=== PATIENT | female | born 1970 | race Caucasian/White ===

== ENCOUNTER 2018-03-26 02:12 | Emergency (ER) | payer OTHER, BC ==
[~2018-03-26] VITALS: Ht 172.7 cm; Wt 89.8 kg
[~2018-03-26 02:12] MED LIST: BUPROPION XL150 MG PO; METHOCARBAMOL500 MG PO; OMEPRAZOLE40 MG PO; SERTRALINE HCL100 MG PO; SULFAMETHOXAZO1 EAC1 PO; ZYRTEC10 M3 PO
== END 2018-03-26 03:48 | disposition home or self-care (01) ==
LOC: ED 02:12
DX: S09.90XA Unspecified injury of head, initial encounter (principal); S01.511A Laceration without foreign body of lip, initial encounter; S09.93XA Unspecified injury of face, initial encounter; Z88.6 Allergy status to analgesic agent; Z79.899 Other long term (current) drug therapy; W18.30XA Fall on same level, unspecified, initial encounter; Y99.0 Civilian activity done for income or pay
CPT/HCPCS: 70450; 99284

== ENCOUNTER 2020-12-21 05:45 | Day surgery (SDC) | payer BC ==
[~2020-12-21] VITALS: Ht 172.7 cm; Wt 90.5 kg
--- NOTE | ~2020-12-21 | OR ---
[address] [address] [place] DATE OF OPERATION: 12/21/2020 SURGEON: Helen Lake DO PREOPERATIVE DIAGNOSES: Mixed incontinence with stress predominant. POSTOPERATIVE DIAGNOSES: Mixed incontinence with stress predominant. PROCEDURES PERFORMED: Tension-free mid urethral sling with Obtryx system. MANUFACTURING SHIFT SUPERVISOR: Juju Sherman MD. ANESTHESIA: General. ESTIMATED BLOOD LOSS: 25 mL. SPECIMEN: None. PACKING: Premarin impregnated Kerlix. FINDINGS: Normal external genitalia with normal clitoris, urethral meatus, Kennedale's and Bartholin's. Some redundant vaginal tissue inferior to the urethra, but no significant anterior compartment prolapse. TOT was placed with careful attention to tension-free positioning. Hemostasis at the end the procedure. Normal urethra, bladder and bilateral ureteral jets noted immediately after placement of the trocars at the end of the procedure. COMPLICATIONS: None. INDICATIONS: PATIENT NAME: NATE PRO OPERATIVE REPORT DATE OF : 70 REPORT #: [id number] PHYSICIAN: HELEN LAKE DO PCP: FOREIGN GUERRERO REPORT IS CONFIDENTIAL AND NOT TO BE RELEASED WITHOUT AUTHORIZATION [address] [address] [place] Ms. Pro is a very pleasant 50-year-old, G5, P3, white female, who presents with history of mixed incontinence with stress predominating. She reports that she has to change her clothes several times per day at work and the incontinence interferes with playing with her grandchildren. She has failed pads, Kegel regimen, Poise Impressa and lifestyle changes. She is status post total vaginal hysterectomy for endometriosis. She was seen by Dr. Sawyer MD Urology at [facility] for mixed incontinence and he recommended proceeding with mid urethral sling placement as stress predominates. Risks, benefits, and alternatives were discussed in detail with the patient. The patient understands and wishes to proceed with the procedure. TECHNIQUE: The patient was taken to the operating room. A time-out was performed to confirm correct patient, correct procedure. General anesthesia was adequately established. The patient was prepped and draped in dorsal lithotomy position with her feet in Yellofins stirrups. ICPs were on and running. The patient received Ancef 2 g preoperatively and heparin was not indicated. A Castillo catheter was inserted. The skin lateral to the inferior pubic ramus was prepared. A 1.5 cm vertical midline incision was made on the anterior vaginal wall at the level of the mid-urethra. Periurethral tissue was dissected bilaterally to the inferior portion of the inferior pubic ramus at a 45-degree angle off the midline creating a vertical pathway. A stab incision was made at the exit site after careful palpation of obturator foramen. The trocar was then selected and the obturator foramen was pierced on the left with the contralateral finger inserted into the previously prepared pathway and the tip of the trocar was palpated. The trocar was then rotated medially around the inferior pubic ramus and the tip was guided through the vaginal incision. The Obtryx mesh was then attached with the loop of the trocar tip and the trocar removed through the incision site. The process was repeated on the right without complication. The mesh sleeve was positioned centering the tab below the urethra. The Castillo catheter was removed and cystoscopy was performed with a 70-degree cystoscope placed in the urethral meatus and advanced under direct visualization into the bladder. Normal urethra, bladder and bilateral ureteral jets was appreciated. A right angle clamp was used to help adjust tensioning. The sleeve was removed from the mesh and final tensioning was performed with careful attention to ensure tension-free placement. The skin was gently pressed downward and the distal ends of the mesh were cut. The skin was lifted with pickups to lift the edge of the mesh fall below the level of the skin. Cystoscopy was then again performed that demonstrates normal urethra, bladder and bilateral ureteral jets. Vaginal epithelium was then reapproximated using 3-0 Vicryl in a running locked manner. The vaginal tissue was inspected and no perforations were noted. Castillo catheter was reinserted. The skin incision sites were repaired with Dermabond and found to be hemostatic. The vagina was then packed with Premarin impregnated Kerlix. The patient was then taken to PACU in good and stable condition. PATIENT NAME: NATE PRO OPERATIVE REPORT DATE OF : 70 REPORT #: [id number] PHYSICIAN: HELEN LAKE DO PCP: FOREIGN GUERRERO REPORT IS CONFIDENTIAL AND NOT TO BE RELEASED WITHOUT AUTHORIZATION [facility] [address] [place], [place] [address] Draft Sponge, needle and instrument count was correct x2 at the end the procedure. Dr. Sherman was present and participated in all portions of procedure. DO HEATHER Harden/HARRY /[id number] Copies: ~ PATIENT NAME: NATE PRO OPERATIVE REPORT DATE OF : 70 REPORT #: [id number] PHYSICIAN: HELEN LAKE DO PCP: FOREIGN GUERRERO REPORT IS CONFIDENTIAL AND NOT TO BE RELEASED WITHOUT AUTHORIZATION
--- NOTE | 2020-12-21 10:00 | NUR ---
PT ALERT, ORIENTED AND SEEMS TO BE ENJOYING THE EMERGENCY THAT IS PRESENTLY OCCUPYING THE DRS. PT SEEMS INFORMED, EXPRESSED DESIRE TO RETURN TO MORE HER NORMAL ACTIVITY SHE HAS BEEN MISSING OUT ON LATELY. ALL QUESTIONS ASKED WERE ANSWERED. PT REQUESTED PRAYER, WILL FOLLOW NEEDED
--- NOTE | 2020-12-21 10:59 | NUR ---
12/21/20 Sascha9 Edilia Sumner 1048- PT ARRIVES TO PACU NONAROUSABLE TO NOXIOUS STIMULI WITH AN OPA IN PLACE. RESP EVEN AND UNLABORED. OXYGEN SAT HIGH 90'S TO 100% ON 8L VIA MASK.
--- NOTE | 2020-12-21 11:26 | NUR ---
ICED WATER AND JELLO GIVEN. CALL LIGHT WITHIN REACH.
--- NOTE | 2020-12-21 11:31 | NUR ---
PEARCE BALLOON DEFLATED FOR 10 ML FLUID. PEARCE DC WNL. PATIENT TOLERATES WELL. 300 ML CLEAR, LIGHT YELLOW URINE NOTED TO PEARCE OVERNIGHT BAG. PATIENT IS SITTING UP IN BED. HER CELL PHONE IS GIVEN. SHE IS EATING AND DRINKING AND TOLERATING THAT WELL.
[2020-12-21] MEDS ORDERED: OXYCODONE HCL5 MG PO (11:50)
[2020-12-21] MEDS ORDERED: CEPHALEXIN500 M1 PO (11:51)
--- NOTE | 2020-12-21 12:33 | NUR ---
MORE ICED WATER GIVEN. SOUP ORDERED FROM DIETARY.
--- NOTE | 2020-12-21 13:30 | NUR ---
SOUP AND SANDWICH EATING. PATIENT TOLERATES THAT WELL AND REPORTS THE URGE TO VOID.
--- NOTE | 2020-12-21 13:45 | NUR ---
VERBAL ORDER RECEIVED FROM DR CROSS TO REMOVE VAGINAL PACKING. PACKING IS REMOVED WITH A SCANT AMOUNT OF BLOODY DRAINAGE NOTED. PATIENT TOLERATES THIS REMOVAL WELL. PATIENT IS UP TO THE BATHROOM WITH MY STANDBY. PATIENT VOIDS 700 ML BLOODY URINE. NEW SANDY PAD AND STRETCH KNIT BRIEFS ARE PLACED. PATIENT IS BLADDER SCANNED AND FOUND TO 55 ML OF RESIDUAL. THIS IS RELAYED TO DR CROSS. CALL LIGHT IS WITHIN REACH. SPOUSE IS AT HER BEDSIDE. PATIENT DENIES ADDITIONAL NEEDS AT THIS TIME.
--- NOTE | 2020-12-21 15:02 | NUR ---
LE 1420: MESSAGE RECEIVED FROM DR CROSS SAYING VOIDING TRIAL WAS SUCCESSFUL AND PATIENT MAY BE DC HOME. DISCHARGE INSTRUCTIONS ARE GIVEN AND PATIENT AND HER BOTH VERBALIZE UNDERSTANDING. PATIENT IS GETTING DRESSED IN THE PRESENCE OF HER SPOUSE. SHE TRANSFERS TO THE WHEELCHAIR AND THEN TO PERSONAL VEHICLE AND SHE TOLERATES THAT WELL.
== END 2020-12-21 14:25 | disposition home or self-care (01) ==
LOC: DS 05:45 → OPS 05:45 → DS 06:45 → OPS 06:45
PROVIDERS: ATTEND Obstetrics & Gynecology
PROC: 0TSD0ZZ Reposition Urethra, Open Approach (ICD-10-PCS; principal; 2020-12-21 06:45)
DX: N39.46 Mixed incontinence (principal); Z88.6 Allergy status to analgesic agent
CPT/HCPCS: 00860; C1771; J0690; J1100; J1885; J2001; J2405; J2704; J3010; J7121

== ENCOUNTER 2023-08-15 07:09 | Day surgery (SDC) | payer BC ==
[~2023-08-15] VITALS: Ht 172.7 cm; Wt 102.7 kg
[~2023-08-15 07:09] MED LIST changes: +CEPHALEXIN500 M1 PO; +FAMCICLOVIR500 MG PO; +OXYCODONE HCL5 MG PO
[2023-08-15 07:24] VITALS: BP 140/86
--- NOTE | 2023-08-15 09:41 | NUR ---
08/15/23 0941 Sheets,Mary 0932 PT ARRIVED TO PACU ON 2L NC, PT AWAKE OFF AND ON AND DENIES CONCERNS. PT HAS HICCUPS AND IS ENCOUARGED TO PASS GAS OFF AND ON. PT SITTING IN SEMI FOWLERS AND RESP EVEN AND UNLABORED. 0936 O2 TURNED OFF AND PT EASILY FALLS ASLEEP WITH SMALL AMOUNT OF SNORING NOTED.
[2023-08-15 10:13] VITALS: BP 131/86
--- NOTE | 2023-08-15 11:43 | OR ---
[facility] [address] [place], [place] [address] Signed DATE OF OPERATION: 08/15/2023 SURGEON: Cassie Salazar MD PREOPERATIVE DIAGNOSES: 1. Gastroesophageal reflux with episodic dysphagia. 2. Colon screening. POSTOPERATIVE DIAGNOSES: 1. Hiatal hernia with low-grade Schatzki's ring. 2. Sigmoid diverticulosis. 3. Multiple polyps of sigmoid and rectosigmoid (polyps x5). PROCEDURES: 1. Esophagogastroduodenoscopy with biopsy. 2. Total colonoscopy to cecum with cold morcellation polypectomy x2 and mucosal lift snare polypectomy with Endomark tattoo x3. ANESTHESIA: Intravenous sedation; fentanyl 200 mcg and Versed 12 mg total. INDICATION: This 52-year-old white woman is a patient of KRISTI Garcia. The patient has had gastroesophageal reflux and dysphagia. She has previously been endoscoped by Dr. Pagan and found to have a Schatzki's ring in 2016. She does not have severe dysphagia currently. She does take PPI medication on a daily basis. Additionally, she is appropriate for colon screening. She has no colonic symptoms currently and no colon cancer family history. She understands the risk of both procedures including, but not limited to bleeding, infection, and perforation and wished to proceed. FINDINGS: Upper endoscopy did show hiatal hernia and a low-grade Schatzki's ring of the distal esophagus. There is no Ramos's epithelium. There were a few gastric polyps probably related to PPI use. On colonoscopy, sigmoid diverticulosis was noted. Additionally, there were five polyps, some of them larger than others, three of which were excised with hot snare polypectomy technique with mucosal lift and two others with cold morcellation technique. Electronically Signed By: CASSIE SALAZAR MD 08/15/23 1143 PATIENT NAME: NATE PRO OPERATIVE REPORT DATE OF : 70 REPORT #: [id number] PHYSICIAN: CASSIE SALAZAR MD PCP: FOREIGN GUERRERO REPORT IS CONFIDENTIAL AND NOT TO BE RELEASED WITHOUT AUTHORIZATION [facility] [address] [place], [place] [address] Signed DESCRIPTION OF PROCEDURE: The patient was brought to the endoscopy suite and placed in the lateral decubitus position, given intravenous sedation to the point of slurred speech and nystagmus. Full cardiopulmonary monitoring was maintained. Lidocaine hypopharyngeal anesthesia was administered. A bite block was placed and an Olympus video upper endoscope was passed in the hypopharynx. The vocal cords appeared normal. The scope was advanced into the esophagus. In the distal portion, there was a low-grade Schatzki's ring without signs of Ramos's epithelium or neoplasm. The scope was easily passed into the stomach. Stomach was insufflated with air. There were few polyps at the midportion of the stomach. The pylorus was normal and scope was passed through into the duodenum. Biopsies were taken of the duodenum and scope was withdrawn and biopsies then taken of the antrum for both DEMETRICE and pathologic testing. A gastric polyp was excised as well. Retroflexed view confirmed a hiatal hernia, relatively small in size. The scope was withdrawn to the distal esophagus where Schatzki's ring was identified and biopsies obtained there. There was no sign of Ramos's epithelium or actual neoplasm proper. The scope was withdrawn and biopsy was then taken of the mid esophagus. The scope was then withdrawn. Additional sedation was given and digital rectal examination was performed, which was normal. Olympus video colonoscope was passed in the rectum and manipulated throughout the colon. Diverticulosis was noted in the sigmoid and left colon. Scope was locally advanced to the cecum. The ileocecal valve and appendiceal orifice were normal. The scope was withdrawn from that point and examination throughout showed no sign of abnormality other than diverticula of the left colon and sigmoid at which time at 40 to 45 cm were three separate polyps, two of them larger than normal greater than 1 cm. Mucosal lift technique for excision was deemed advisable. A sclerotherapy needle with an Endomark tattoo dye was used to provide the mucosal lift and three polyps were excised with hot snare technique. These were gathered in a Luis net and withdrawn. The scope was reintroduced and the sites of polypectomy were hemostatic. The scope was further withdrawn and another polyp of similar type was noted at 35 cm. It was excised with hot snare technique and a 5th polyp noted at the rectosigmoid at about 20 cm, excised with morcellation technique. Retroflexed view of the rectum was otherwise normal. Scope was removed and the patient was taken to the recovery room in good condition. CONCLUDING DIAGNOSES: 1. Polyps x5 and diverticulosis. 2. Hiatal hernia with Schatzki's ring. Electronically Signed By: CASSIE SALAZAR MD 08/15/23 1143 PATIENT NAME: NATE PRO OPERATIVE REPORT DATE OF : 70 REPORT #: [id number] PHYSICIAN: CASSIE SALAZAR MD PCP: FOREIGN UGERRERO REPORT IS CONFIDENTIAL AND NOT TO BE RELEASED WITHOUT AUTHORIZATION [address] [address] Signed PLAN: Recommend continued use of her PPI medication for now. Weight loss would be advisable. If she has sufficient weight loss, consideration would be made for anti-reflux operation. As regard to colon, would recommend repeat colonoscopy in one year. MD SANGITA Hathaway/HARRY /[id number] cc: KRISTI Garcia Copies: FOREIGN GUERRERO ~ Electronically Signed By: CASSIE SALAZAR MD 08/15/23 1143 PATIENT NAME: NATE PRO OPERATIVE REPORT DATE OF : 70 REPORT #: [id number] PHYSICIAN: CASSIE SALAZAR MD PCP: FOREIGN GUERRERO REPORT IS CONFIDENTIAL AND NOT TO BE RELEASED WITHOUT AUTHORIZATION
--- NOTE | 2023-08-20 17:17 | PATH ---
[facility] [address] [place], [place] [address] Signed SPECIMEN(S): A DUODENAL BIOPSY SPECIMEN(S): B ANTRUM/PYLORUS BIOPSY SPECIMEN(S): C STOMACH POLYP SPECIMEN(S): D LOWER ESOPHAGEAL BIOPSY SPECIMEN(S): E UPPER ESOPHAGEAL BIOPSY SPECIMEN(S): F SIGMOID COLON POLYPS AT 40 CM SPECIMEN(S): G COLON POLYP AT 35 CM SPECIMEN(S): H COLON POLYP AT 20 CM SPECIMEN SOURCE: A. DUODENAL BIOPSY B. ANTRUM/PYLORUS BIOPSY C. STOMACH POLYP D. LOWER ESOPHAGEAL BIOPSY E. UPPER ESOPHAGEAL BIOPSY F. SIGMOID COLON POLYPS AT 40 CM G. COLON POLYP AT 35 CM H. COLON POLYP AT 20 CM CLINICAL HISTORY: Dysphagia, GERD. Schatzki ring, hiatal hernia, gastric polyp, diverticulosis, polyps. FINAL PATHOLOGIC DIAGNOSIS: A. Duodenal biopsy: - Duodenal mucosa with diffuse moderate villous effacement and increased epithelial lymphocytes. (see comment) B. Antrum/pylorus biopsy: - Benign gastric-type mucosa with focal slight chronic inflammation. - Helicobacter pylori immunostain is negative for organisms. C. Stomach polyp: - Benign polypoid gastric type mucosa with focal slight chronic inflammation. - Negative for evidence of Helicobacter organisms on routine HE stained sections. D. Lower esophageal biopsy: - Benign esophageal mucosa, negative for significantly increased epithelial eosinophils. - Negative for glandular mucosa. E. Upper esophageal biopsy: - Benign esophageal mucosa, negative for increased epithelial eosinophils. F. Sigmoid colon polyps at 40 cm: PATIENT NAME: NATE PRO PATHOLOGY DATE OF : 70 REPORT #: [id number] PHYSICIAN: AURORA VEE PCP: FOREIGN GUERRERO REPORT IS CONFIDENTIAL AND NOT TO BE RELEASED WITHOUT AUTHORIZATION [facility] [address] [place], [place] [address] Signed - Hyperplastic polyps (multiple fragments). G. Colon polyp at 35 cm: - Tubular adenoma. H. Colon polyp at 20 cm: - Tubular adenoma. COMMENT: (Specimen A) The histologic features would be compatible with celiac disease in the appropriate clinical context. The differential diagnosis also includes other infections, medication effect, and other reactive conditions. Clinical correlation is requested. JVR:jeison MICROSCOPIC EXAMINATION: A Helicobacter pylori immunostain is performed with appropriate positive and negative controls on block B1 and is negative for organisms. Histologic sections of all submitted blocks are examined by light microscopy. These findings, together with the gross examination, support the pathologic diagnosis. GROSS DESCRIPTION: A. The specimen, labeled and designated "Naga, duodenal biopsy," is received in formalin and consists of two davidson soft tissue fragments, ranging from 0.3-0.6 cm. Entirely submitted in (A1). B. The specimen, labeled and designated "Phoenix, antrum/pylorus biopsy," is received in formalin and consists of two davidson soft tissue fragments, ranging from 0.3-0.4 cm. Entirely submitted in (B1). C. The specimen, labeled and designated "Phoenix, stomach polyp," is received in formalin and consists of two davidson soft tissue fragments, ranging from 0.3-0.4 cm. Entirely submitted in (C1). D. The specimen, labeled and designated "Phoenix, lower esophageal biopsy," is received in formalin and consists of two davidson soft tissue fragments, ranging from 0.3-0.4 cm. Entirely submitted in (D1). E. The specimen, labeled and designated "Naga, upper esophageal biopsy," is received in formalin and consists of two davidson soft tissue fragments, ranging from 0.2-0.6 cm. Entirely submitted in (E1). F. The specimen, labeled and designated "Naga, sigmoid colon polyps at 40 cm," is received in formalin and consists of two fragments of brown-davidson soft tissue (0.4-0.5 cm in greatest dimension), and two polyps of brown-davidson to black-brown soft tissue (0.7 x 0.7 x 0.5 cm, and 0.9 x 0.9 x 0.7 cm). The resection margins are differentially inked blue and PATIENT NAME: NATE PRO PATHOLOGY DATE OF : 70 REPORT #: [id number] PHYSICIAN: AURORA VEE PCP: FOREIGN GUERRERO REPORT IS CONFIDENTIAL AND NOT TO BE RELEASED WITHOUT AUTHORIZATION [facility] [address] [place], [place] [address] Signed black, and both are trisected to reveal pink-davidson to brown-davidson soft cut surfaces. The specimen is submitted entirely in cassette (F1). G. The specimen, labeled and designated "Naga, colon polyp at 35 cm," is received in formalin and consists of a polyp of brown-davidson soft tissue (0.6 x 0.5 x 0.4 cm). The resection margin is inked blue, and the tissue is bisected to reveal pink-davidson soft cut surfaces. The specimen is submitted entirely in cassette (G1). H. The specimen, labeled and designated "Naga, colon polyp at 20 cm," is received in formalin and consists of a polyp of brown-davidson soft tissue (0.7 x 0.6 x 0.5 cm). The possible resection margin is inked black, and the tissue is bisected to reveal brown-davidson soft cut surfaces. The specimen is submitted entirely in cassette (H1). VB (under the direct supervision of a pathologist) The Gross Description was prepared using a voice recognition system. The report was reviewed for accuracy; however, sound-alike word errors, addition and/or deletions may occur. If there is any question about this report, please contact Client Services. ADDITIONAL NOTES: Immunohistochemical and/or in situ hybridization studies were performed on this case with the appropriate positive controls that react as expected. This test was developed and its performance characteristics determined by [facility]. It has not been cleared or approved by the U.S. Food and Drug Administration. The FDA has determined that such clearance or approval is not necessary. This test is used for clinical purposes. It should not be regarded as investigational or for research. [facility] is certified under the Clinical Laboratory Improvement Amendments of 1988 (CLIA) as qualified to perform high complexity clinical laboratory testing. This assay has not been validated for specimens that have been decalcified. PERFORMING LABORATORY: Technical component was performed by [facility], [address] [place] [address] (CLIA# [id number]). Professional interpretation was performed by [facility], [address] [place] [id number] (CLIA#: [id number]). Diagnostician: Dhruv Milan MD Pathologist PATIENT NAME: NATE PRO PATHOLOGY DATE OF : 70 REPORT #: [id number] PHYSICIAN: AURORA VEE PCP: FOREIGN GUERRERO REPORT IS CONFIDENTIAL AND NOT TO BE RELEASED WITHOUT AUTHORIZATION [address] [place], [place] [address] Signed Electronically Signed 08/20/2023 Copies: ~ PATIENT NAME: NATE PRO PATHOLOGY DATE OF : 70 REPORT #: [id number] PHYSICIAN: AURORA PATHOLOGY PCP: FOREIGN GUERRERO REPORT IS CONFIDENTIAL AND NOT TO BE RELEASED WITHOUT AUTHORIZATION
== END 2023-08-15 10:32 | disposition home or self-care (01) ==
LOC: DS 07:09 → OPS 07:09 → DS 08:30 → OPS 10:32
PROVIDERS: ATTEND Surgery
PROC: 3E0H8KZ Introduction of Other Diagnostic Substance into Lower GI, Via Natural or Artificial Opening Endoscopic (ICD-10-PCS; 2023-08-15)
PROC: 0DB98ZX Excision of Duodenum, Via Natural or Artificial Opening Endoscopic, Diagnostic (ICD-10-PCS; 2023-08-15)
PROC: 0DB68ZX Excision of Stomach, Via Natural or Artificial Opening Endoscopic, Diagnostic (ICD-10-PCS; 2023-08-15)
PROC: 0DBG8ZZ Excision of Left Large Intestine, Via Natural or Artificial Opening Endoscopic (ICD-10-PCS; principal; 2023-08-15 08:30)
PROC: 0DBN8ZZ Excision of Sigmoid Colon, Via Natural or Artificial Opening Endoscopic (ICD-10-PCS; 2023-08-15 08:30)
DX: Z12.11 Encounter for screening for malignant neoplasm of colon (principal); D12.6 Benign neoplasm of colon, unspecified; K29.70 Gastritis, unspecified, without bleeding; K63.5 Polyp of colon; K21.9 Gastro-esophageal reflux disease without esophagitis; K22.2 Esophageal obstruction; K44.9 Diaphragmatic hernia without obstruction or gangrene; K57.30 Diverticulosis of large intestine without perforation or abscess without bleeding; E66.01 Morbid (severe) obesity due to excess calories; Z68.34 Body mass index [BMI] 34.0-34.9, adult; Z88.6 Allergy status to analgesic agent
CPT/HCPCS: 99153; G0500; J2250; J3010; J7121

== ENCOUNTER 2024-10-26 11:30 | Day surgery (SDC) | payer BC ==
[~2024-10-26] VITALS: Ht 172.7 cm; Wt 95.9 kg
[~2024-10-26 11:30] MED LIST changes: +IBLOOD GLUCOSE TEST STRIP 1 EA TEST VI PRN; +LACTATED RINGER'S 1,000 ML IV SCH; +LIDOCAINE HCL 1% 5 ML SDV INJ ONE; +MIDAZOLAM HCL 5 MG/5 ML VIAL IV PRN; +fentaNYL citrate 100 MCG/2 ML VIAL IV PRN
[2024-10-26 11:46] VITALS: BP 138/80
[2024-10-26] MEDS ORDERED: MULTIVITAMIN1 EACH PO (11:49)
[2024-10-26] MEDS ORDERED: ESTRADIOL1 EAC8 TD (11:49)
[2024-10-26] MEDS ORDERED: fentaNYL citrate 100 MCG/2 ML VIAL ONE (12:56)
[2024-10-26] MEDS ORDERED: MIDAZOLAM HCL 5 MG/5 ML VIAL ONE (12:56)
--- NOTE | 2024-10-26 14:01 | NUR ---
10/26/24 1401 Sheets,Mary 1353 PT ARRIVED TO PACU ON 2L NC, PT WAKES AND TALKING TO RN. VSS. PLAN OF CARE DISCUSSED. PT ENCOURAGED TO PASS GAS NEEDED. 1400 PT PASSING LARGE AMOUNT OF GAS.
[2024-10-26 14:16] VITALS: BP 138/99
--- NOTE | 2024-10-27 12:39 | OR ---
[facility] [address] [place], [place] [address] Signed DATE OF OPERATION: 10/26/2024 SURGEON: Cassie Salazar MD PREOPERATIVE DIAGNOSES: History of left-sided polyps and diverticulosis. POSTOPERATIVE DIAGNOSES: 1. Polyps x4. 2. Diverticulosis. PROCEDURE: Total colonoscopy to cecum with cold morcellation polypectomy x4. ANESTHESIA: Intravenous sedation; fentanyl 100 mcg and Versed 9 mg. INDICATION: This 53-year-old white woman is a patient of KRISTI Garcia. She underwent colonoscopy in the past by [facility], which showed diverticulosis of the sigmoid colon, but multiple polyps of the left colon. This was last performed in 2022. She is symptom free, having no bleeding, diarrhea or constipation. She is admitted to undergo colonoscopy for surveillance. She understands the risk of bleeding, infection, and perforation. FINDINGS: The prep was excellent. Complete colonoscopy was undertaken of the cecum with full intubation of the cecum. She did have sigmoid and left-sided diverticulosis. There were four polyps in total, all of them small, one in the right transverse colon and other in the right colon, one in the left colon and the other in the sigmoid. DESCRIPTION OF PROCEDURE: The patient was brought to the endoscopy suite and placed in the lateral decubitus position, given intravenous sedation to the point of slurred speech and nystagmus. Full cardiopulmonary monitoring was maintained. Digital rectal examination was normal. An Olympus video colonoscope was passed in the rectum and manipulated throughout the colon ultimately intubating the cecum itself. The ileocecal valve and appendiceal orifice were normal. The scope was withdrawn. In the distal ascending colon, there was a small polyp which appeared adenomatous. This was excised with cold morcellation Electronically Signed By: CASSIE SALAZAR MD 10/27/24 1239 PATIENT NAME: NATE PRO OPERATIVE REPORT DATE OF : 70 REPORT #: [id number] PHYSICIAN: CASSIE SALAZAR MD PCP: FOREIGN RONQUILLO REPORT IS CONFIDENTIAL AND NOT TO BE RELEASED WITHOUT AUTHORIZATION [facility] [address] [place], [place] [address] Signed technique. Further withdrawal showed another small polyp in the right transverse colon similarly excised. Further withdrawal showed another in the proximal left colon also excised with cold morcellation technique and ultimately diverticula of the sigmoid and left colon and in the sigmoid another small polyp also excised with cold morcellation technique. Further withdrawal to the rectum showed no abnormality. Retroflexed view was normal. Scope was removed and the patient was taken to the recovery room in good condition. CONCLUSION DIAGNOSES: Polyps x4 and diverticulosis. PLAN: Recommend repeat colonoscopy in 5 years based on current recommendations and maintain high-fiber diet. She will return to the ongoing care of [facility]. MD SANGITA Hathaway/HARRY /[id number] cc: KRISTI Garcia Copies: FOREIGN RONQUILLO ~ Electronically Signed By: CASSIE SALAZAR MD 10/27/24 1239 PATIENT NAME: INOCENCIANATESEBASTIAN OSHEA OPERATIVE REPORT DATE OF : 70 REPORT #: [id number] PHYSICIAN: CASSIE SALAZAR MD PCP: FOREIGN RONQUILLO REPORT IS CONFIDENTIAL AND NOT TO BE RELEASED WITHOUT AUTHORIZATION
--- NOTE | 2024-10-27 16:37 | PATH ---
[facility] [address] [place], [place] [address] Signed SPECIMEN(S): A RIGHT ASCENDING POLYP SPECIMEN(S): B TRANSVERSE POLYP SPECIMEN(S): C PROXIMAL LEFT DESCENDING POLYP SPECIMEN(S): D SIGMOID POLYP SPECIMEN SOURCE: A. RIGHT ASCENDING POLYP B. TRANSVERSE POLYP C. PROXIMAL LEFT DESCENDING POLYP D. SIGMOID POLYP CLINICAL HISTORY: Celiac disease, history of polyps of colon, diverticulosis FINAL PATHOLOGIC DIAGNOSIS: A. Right ascending polyp: - Tubular adenoma (two fragments). B. Transverse polyp: - Serrated polyp/adenoma (one fragment). C. Proximal left descending polyp: - Tubular adenoma (two fragments). - Hyperplastic polyps (two fragments). D. Sigmoid polyp: - Hyperplastic polyp (one fragment). JVR:tanya MICROSCOPIC EXAMINATION: Histologic sections of all submitted blocks are examined by light microscopy. These findings, together with the gross examination, support the pathologic diagnosis. GROSS DESCRIPTION: A. The specimen, labeled and designated "Naga, right ascending polyp," is received in formalin and consists of two davidson soft tissue fragments, ranging from 0.2-0.5 cm. Entirely submitted in (A1). B. The specimen, labeled and designated "Naga, transverse polyp," is received in formalin and consists of three davidson soft tissue fragments, ranging from 0.2-0.6 cm. Entirely submitted in (B1). C. The specimen, labeled and designated "Naga, proximal left descending polyp," is received in formalin and consists of six davidson soft tissue fragments, ranging from 0.1-0.3 cm. Entirely submitted PATIENT NAME: NATE PRO PATHOLOGY DATE OF : 70 REPORT #: [id number] PHYSICIAN: AURORA VEE PCP: FOREIGN GUERRERO REPORT IS CONFIDENTIAL AND NOT TO BE RELEASED WITHOUT AUTHORIZATION [facility] [address] [place], [place] [address] Signed in (C1). D. The specimen, labeled and designated "Naga, sigmoid polyp," is received in formalin and consists of two davidson soft tissue fragments, ranging from 0.2-0.3 cm. Entirely submitted in (D1). VB (under the direct supervision of a pathologist) The Gross Description was prepared using a voice recognition system. The report was reviewed for accuracy; however, sound-alike word errors, addition and/or deletions may occur. If there is any question about this report, please contact Client Services. PERFORMING LABORATORY: Technical component was performed by [facility], [address] [place] [id number] (CLIA# [id number]). Professional interpretation was performed by [facility], [address] [place] [id number] (CLIA#: [id number]). Diagnostician: Dhruv Milan MD Pathologist Electronically Signed 10/27/2024 Copies: ~ PATIENT NAME: NATE PRO PATHOLOGY DATE OF : 70 REPORT #: [id number] PHYSICIAN: AURORA VEE PCP: FOREIGN GUERRERO REPORT IS CONFIDENTIAL AND NOT TO BE RELEASED WITHOUT AUTHORIZATION
== END 2024-10-26 14:29 | disposition home or self-care (01) ==
LOC: OPS 11:30 → DS 11:31 → OPS 12:00
PROVIDERS: ATTEND Surgery
PROC: 0DBL8ZZ Excision of Transverse Colon, Via Natural or Artificial Opening Endoscopic (ICD-10-PCS; 2024-10-26)
PROC: 0DBN8ZZ Excision of Sigmoid Colon, Via Natural or Artificial Opening Endoscopic (ICD-10-PCS; 2024-10-26)
PROC: 0DBF8ZZ Excision of Right Large Intestine, Via Natural or Artificial Opening Endoscopic (ICD-10-PCS; 2024-10-26)
PROC: 0DBG8ZZ Excision of Left Large Intestine, Via Natural or Artificial Opening Endoscopic (ICD-10-PCS; principal; 2024-10-26 12:15)
DX: Z12.11 Encounter for screening for malignant neoplasm of colon (principal); D12.2 Benign neoplasm of ascending colon; D12.3 Benign neoplasm of transverse colon; D12.4 Benign neoplasm of descending colon; K63.5 Polyp of colon; K57.30 Diverticulosis of large intestine without perforation or abscess without bleeding; K90.0 Celiac disease; K21.9 Gastro-esophageal reflux disease without esophagitis; E66.01 Morbid (severe) obesity due to excess calories; Z68.32 Body mass index [BMI] 32.0-32.9, adult; Z86.0100 Personal history of colon polyps, unspecified
CPT/HCPCS: 99153; G0500; J2250; J3010; J7121